=== PATIENT | male | born 1950 | race Hispanic/Latino ===

== ENCOUNTER → 2019-02-26 | Outpatient (CLI) | payer OTHER ==
[~2019-02-26] MED LIST: AMLO5TAB9 PO; LEVO500T89 PO; LOSA50TA64 PO; TAMS0.4C32 PO
== END | disposition home or self-care (01) ==
LOC: SHCH 10:54
PROVIDERS: ATTEND Internal Medicine Cardiovascular Disease
DX: I11.9 Hypertensive heart disease without heart failure (principal); I65.23 Occlusion and stenosis of bilateral carotid arteries; Z86.73 Personal history of transient ischemic attack (TIA), and cerebral infarction without residual deficits
CPT/HCPCS: 93306; 93880

== ENCOUNTER 2019-04-22 06:41 | Observation (INO) | payer OTHER, MEDICARE ==
[2019-04-20 12:12] VITALS: BP 149/77
[2019-04-20 12:20] LABS: APPEARANCE,URINE Clear (CLEAR); BASOPHILS % (AUTO) 1.2 % (0.0-5.0); BILIRUBIN,URINE Negative (NEGATIVE); COLOR,URINE Yellow (YELLOW); EOSINOPHILS % (AUTO) 1.3 % (0.0-8.0); GLUCOSE, URINE (UA) Negative (NEGATIVE); HEMATOCRIT 40.9 % (42-54); KETONES,URINE Negative (NEGATIVE); LEUKOCYTE ESTERASE ,URINE Negative (NEGATIVE); LYMPHOCYTES % (AUTO) 27.4 % (21.0-51.0); MEAN CORPUSCULAR HEMOGLOBIN 28.5 pg (27.0-33.0); MEAN CORPUSCULAR HGB CONC 33.8 g/dL (32.0-36.0); MEAN CORPUSCULAR VOLUME 84.3 fL (79-99); MONOCYTES % (AUTO) 7.7 % (3.0-13.0); NEUTROPHILS % (AUTO) 62.4 % (40.0-77.0); NITRATE,URINE Negative (NEGATIVE); OCCULT BLOOD,URINE Negative (NEGATIVE); PLATELET COUNT (AUTO) 265 K/uL (130-400); PROTEIN,URINE Negative (NEGATIVE); RED BLOOD CELL COUNT(AUTO) 4.85 MIL/uL (4.50-6.20); RED CELL DISTRIBUTION WIDTH 15.7 % (11.0-15.5); UROBILINOGEN,URINE 0.2 mg/dL (0.2-1.0); WHITE BLOOD COUNT (AUTO) 5.8 K/uL (4.8-10.8)
[2019-04-20 12:28] LABS: POTASSIUM 4.2 mmol/L (3.5-5.1)
[2019-04-20 12:30] LABS: INR 0.93 (0.85-1.15); PARTIAL THROMBOPLASTIN TIME 28.5 SEC (26.3-35.5); PROTHROMBIN TIME 9.8 SEC (9.6-11.6)
[2019-04-20] MEDS: SODIUM CHLORIDE 0.9% 1000ML 1,000 ML IV SCH (14:45)
[2019-04-21] MEDS: SODIUM CHLORIDE 0.9% 1000ML 1,000 ML IV SCH ×3 (00:45→20:45)
--- NOTE | 2019-04-21 12:38 | NUR ---
CLARIFICATION CALLED [facility] TO CLARIFY WHO IS GOING TO DO PROCEDURE, ORDER STATES WITH DR. Shelbi CAMPOS. PER SEAN, SHE CLARIFIED THAT IT IS ONLY DR. EISENBERG DOING THE PROCEDURE.
[~2019-04-22] VITALS: Ht 182.9 cm; Wt 100.8 kg
[2019-04-22] VITALS (8 sets, daily range): BP systolic 130–167; BP diastolic 60–81
[~2019-04-22 06:41] MED LIST changes: -AMLO5TAB9 PO; +ASPI-1181 PO; +ATOR40TA69 PO; +CLOP75TA32 PO; -LEVO500T89 PO
[2019-04-22] MEDS ORDERED: FINA5TAB41 PO (08:06)
[2019-04-22] MEDS ORDERED: IOHEXOL 350 MG/ML 100ML INFUS..BTL IV ONE ×2 (12:32→14:18)
[2019-04-22] MEDS ORDERED: IOHEXOL-350 50ML VIAL IV ONE (12:32)
[2019-04-22] MEDS ORDERED: LIDOCAINE HCL 2% 20ML ONE (12:32)
[2019-04-22] MEDS ORDERED: NITROGLYCERIN 5 MG/ML 10 ML VIAL IV ONE (12:32)
[2019-04-22] MEDS ORDERED: LABETALOL 20 MG/4 ML DISP.SYRIN IV ONE ×2 (13:57→14:15)
[2019-04-22] MEDS ORDERED: HEPARIN SODIUM 1000UNIT/ML 10ML VIAL ONE (14:18)
[2019-04-22] MEDS ORDERED: BIVALIRUDIN 250 MG/VIAL IV ONE (14:18)
[2019-04-22] MEDS ORDERED: ASPIRIN 325MG EC TAB 325 MG TABLET.DR PO ONE (14:28)
[2019-04-22] MEDS ORDERED: CLOPIDOGREL BISULFATE 300 MG TAB ONE (14:28)
[2019-04-22] MEDS ORDERED: ADENOSINE 90MG/30ML VIAL IV ONE (14:40)
[2019-04-22] MEDS: SODIUM CHLORIDE 0.9% 1000ML 1,000 ML IV SCH (15:02)
[2019-04-22] MEDS ORDERED: TEMAZEPAM 30 MG CAP PO PRN (15:15)
--- NOTE | 2019-04-22 15:30 | NUR ---
PT RECEIVED FROM PROFESSOR COMPUTER SCIENCE, REFER TO PROCEDURE REPORT. PT IS AAOX3, NO ACUTE DISTRESS NOTED. POC DISCUSSED WITH PT. BEDREST X 8 HRS. RIGHT GROIN SOFT, NO BLEEDING OR HEMATOMA NOTED. WILL CONT TO MONITOR. TELE SB 54. VS STABLE.
[2019-04-22] MEDS ORDERED: ASPIRIN 81 MG EC TAB PO SCH (21:00)
[2019-04-22] MEDS ORDERED: ATORVASTATIN CALCIUM 40 MG TABLET PO SCH (21:00)
[2019-04-23] MEDS: SODIUM CHLORIDE 0.9% 1000ML 1,000 ML IV SCH ×3 (01:02→12:45)
[2019-04-23 04:04] LABS: HEMATOCRIT 37.9 % (42-54); MEAN CORPUSCULAR HEMOGLOBIN 28.7 pg (27.0-33.0); MEAN CORPUSCULAR VOLUME 84.5 fL (79-99); PLATELET COUNT (AUTO) 225 K/uL (130-400); RED BLOOD CELL COUNT(AUTO) 4.48 MIL/uL (4.50-6.20); RED CELL DISTRIBUTION WIDTH 15.7 % (11.0-15.5); WHITE BLOOD COUNT (AUTO) 7.3 K/uL (4.8-10.8)
[2019-04-23 04:05] VITALS: BP 137/62
[2019-04-23 04:37] LABS: CREATININE 1.2 mg/dL (0.5-1.5); POTASSIUM 4.3 mmol/L (3.5-5.1); TROPONIN I 0.39 ng/mL (0.00-0.06)
--- NOTE | 2019-04-23 05:00 | NUR ---
PT RIGHT GROIN ASSESSMENT COMPLETE- SOFT AND NON TENDER. NO HEMATOMA NOTED. NO PAIN STATED. IV FLUIDS COMPLETE. NO DISTRESS NOTED.
--- NOTE | 2019-04-23 05:57 | NUR ---
patient a/ox4. Resting in bed. S/P LHC. R groin soft, non tender, no s/s of hematoma. Pedal pulses intact. Ambulated patient at 2330. No s/s of hematoma post ambulation. Denies chest pain or sob.
[2019-04-23 08:09] VITALS: BP 131/70
[2019-04-23] MEDS ORDERED: LOSARTAN 50 MG TABLET PO SCH (09:00)
[2019-04-23] MEDS ORDERED: FINASTERIDE 5 MG TABLET PO SCH (09:00)
[2019-04-23] MEDS ORDERED: CLOPIDOGREL BISULFATE 75 MG TAB PO SCH (09:00)
[2019-04-23 12:12] VITALS: BP 125/57
--- NOTE | 2019-04-23 15:30 | NUR ---
DISCHARGE INSTRUCTIONS/INFORMATION GIVEN TO PATIENT AND . NO NEW PRESCRIPTION. SARA AMAYA EXPLAINED IN DETAIL TO PATIENT THE IMPORTANCE OF UNINTERRUPTED DUAL ANTIPLATELET THERAPY. TEACH BACK METHOD ALSO UTILIZED TO EDUCATE PATIENT ABOUT DIET, S/S TO MONITOR, WHEN TO CALL MD, LIFTING RESTRICTIONS, AND F/U APPOINTMENTS. TELE REMOVED AND RETURNED. PIV REMOVED. TIP WAS INTACT. ALL BELONGINGS WERE PACKED AND TAKEN HOME.
[2019-04-24] MEDS ORDERED: TAMSULOSIN HCL 0.4 MG CAP.ER.24H PO SCH (09:00)
== END 2019-04-23 15:45 | disposition home or self-care (01) ==
LOC: DAH 06:41 → DAHIP 06:42 → 2AH 15:49
PROVIDERS: ADMIT Internal Medicine Cardiovascular Disease; ATTEND Internal Medicine Cardiovascular Disease
DX: I65.21 Occlusion and stenosis of right carotid artery (principal); E78.5 Hyperlipidemia, unspecified; I10 Essential (primary) hypertension; I25.10 Atherosclerotic heart disease of native coronary artery without angina pectoris; N40.0 Benign prostatic hyperplasia without lower urinary tract symptoms; Z86.73 Personal history of transient ischemic attack (TIA), and cerebral infarction without residual deficits; Z82.49 Family history of ischemic heart disease and other diseases of the circulatory system; Z79.899 Other long term (current) drug therapy
CPT/HCPCS: 36222; 36415 ×2; 71045; 80048 ×2; 80061; 81003; 82550; 83874; 84484; 85025; 85027; 85610; 85730; 93005 ×2; 93458; A4606; C1760; C1769; C1876; C1887; C1894; C9600; G0378 ×33; J0153; J0583; J1644 ×2; J3490 ×2; J7030; Q9965 ×3; Q9967 ×3; 36223